=== PATIENT | female | born 1980 | race Caucasian/White ===

== ENCOUNTER 2017-01-02 15:01 | Emergency (ER) | payer BC, OTHER ==
[~2017-01-02] VITALS: Ht 157.5 cm; Wt 47.6 kg
[~2017-01-02 15:01] MED LIST: CLAR500T PO; RABE20TA5 PO
[2017-01-02 16:01] VITALS: BP_SYST 110
[2017-01-02 16:50] LABS: BILIRUBIN,URINE NEGATIVE (NEGATIVE); BLOOD, URINE NEGATIVE (NEGATIVE); CLARITY/URINE CLEAR (CLEAR); COLOR,URINE YELLOW (YELLOW); GLUCOSE,URINE NEGATIVE (NEGATIVE); KETONES,URINE NEGATIVE (NEGATIVE); LEUKOCYTE ESTERASE ,URINE NEGATIVE (NEGATIVE); NITRITE, URINE NEGATIVE (NEGATIVE); PH,URINE 7.5 (5.0-8.0); PROTEIN URINE NEGATIVE (NEGATIVE); UROBILINOGEN,URINE 0.2 (0.2-1.0)
[2017-01-02] MEDS ORDERED: LORazepam 1 MG TABLET PO ONE (17:30)
[2017-01-02 18:01] VITALS: BP_SYST 110
== END 2017-01-02 18:01 | disposition home or self-care (01) ==
LOC: SED 15:01
DX: M54.5 Low back pain (principal); F41.9 Anxiety disorder, unspecified; Z88.1 Allergy status to other antibiotic agents
CPT/HCPCS: 72131; 81003; 81025; 99285